=== PATIENT | female | born 1945 | race Caucasian/White ===

== ENCOUNTER 2016-08-27 14:11 | Inpatient (IN) | payer OTHER ==
[~2016-08-27] VITALS: Ht 157.5 cm; Wt 62.8 kg
[2016-08-27 15:12] LABS: CARBON DIOXIDE (BICARBONATE) 18.8 MEQ/L (20-31)
[2016-08-27 15:20] LABS: CHLORIDE 116 mEq/L (99-109); SODIUM 150 mEq/L (136-147)
[2016-08-27 15:21] LABS: MCH 21.6 PG (29.0-34.0); MCHC 30.7 G/DL (30.0-36.0); MCV 70.1 FL (83-99); NRBC (%) 0.3 /100 WBC (0-0); PLATELET COUNT 322 K/uL (156-360); RBC DIS.WIDTH-CV 18.8 % (11.8-14.6); RBC DIS.WIDTH-SD 45.7 % (39-53); RED BLOOD COUNT 3.85 M/uL (3.80-5.20); WHITE BLOOD COUNT 22.1 K/uL (4.1-10.2)
[2016-08-27 15:23] LABS: GLUCOSE 181 mg/dL (70-99)
[2016-08-27 15:24] LABS: ANION GAP 19 MEQ/L (2-14)
[2016-08-27 15:25] LABS: TOTAL BILIRUBIN 1.4 mg/dL (0.0-1.0)
[2016-08-27 15:26] LABS: ALKALINE PHOSPHATASE 421 IU/L (3-129)
[2016-08-27 15:27] LABS: GFR ESTIMATE (CALCULATED) 13 mL/min/
[2016-08-27 15:28] LABS: DIRECT BILIRUBIN 1.1 mg/dL (0.0-0.3)
[2016-08-27 15:30] LABS: LIPASE 30 U/L (1.0-51.0)
[2016-08-27 15:32] LABS: TROP-I INTERPRETATION NEGATIVE; TROPONIN-I 0.08 ng/mL (0.0-0.30)
[2016-08-27 15:39] LABS: UREA NITROGEN (BUN) 177 mg/dL (9-23)
[2016-08-28 06:58] LABS: HEMATOCRIT 26.7 % (36.0-46.0); MCH 21.4 PG (29.0-34.0); MCHC 29.6 G/DL (30.0-36.0); MCV 72.2 FL (83-99); NRBC (%) 0.3 /100 WBC (0-0); RBC DIS.WIDTH-CV 18.8 % (11.8-14.6); RBC DIS.WIDTH-SD 48.9 % (39-53); WHITE BLOOD COUNT 23.7 K/uL (4.1-10.2)
[2016-08-28 07:36] LABS: MEAN PLAT.VOLUME 11.2 uM^3 (9.5-12.4); PLAT.SUFFICIENCY ADEQUATE; PLATELET COUNT 233 K/uL (156-360)
[2016-08-28 07:37] LABS: ALKALINE PHOSPHATASE 320 IU/L (3-129); ANION GAP 20 MEQ/L (2-14); CHLORIDE 120 MEQ/L (99-109); GFR ESTIMATE (CALCULATED) 13 mL/min/; GLUCOSE 165 mg/dL (70-99); SAMPLE HEMOLYSIS CHECK 0; SAMPLE ICTERIC CHECK 0; SAMPLE LIPEMIA CHECK 0; SODIUM 153 MEQ/L (136-147); TOTAL BILIRUBIN 1.1 MG/DL (0.0-1.0); UREA NITROGEN (BUN) 184 mg/dL (9-23)
[2016-08-28 09:20] VITALS: BP 90/39
== END 2016-08-28 23:46 | DRG 871 ==
LOC: EME → EDBD 14:11 → EME 14:11 → SDC 19:28 → 5EAST 19:47 → 2SOUTH 19:47 → 5EAST 21:27
PROVIDERS: Emergency Medicine; Surgery
DX: A41.9 Sepsis, unspecified organism (principal); K63.1 Perforation of intestine (nontraumatic); E41 Nutritional marasmus; K66.8 Other specified disorders of peritoneum; N17.9 Acute kidney failure, unspecified; K65.9 Peritonitis, unspecified; I96 Gangrene, not elsewhere classified; J18.9 Pneumonia, unspecified organism; E87.2 Acidosis; R91.1 Solitary pulmonary nodule; Z51.5 Encounter for palliative care; J98.11 Atelectasis
CPT/HCPCS: 70450; 71010; 71250; 73630; 74176; 80048; 80053; 80076; 82803; 83605; 83690; 83880; 84484; 85027; 87040; 87186; 87801; 93005; 99281; 99285; J2270; J2405; J2543; J3010; J7030; P9045